=== PATIENT | female | born 1960 | race Asian ===

== ENCOUNTER 2022-12-19 20:32 | Emergency (ER) | payer BC ==
[~2022-12-19] VITALS: Ht 160 cm; Wt 50.3 kg
--- NOTE | 2022-12-19 21:00 | NUR ---
Patient discharged to home in stable condition. Written and verbal after care instructions given. Patient verbalizes understanding of instructions. Stressed follow up or return to ER for worsening s/s. Patient walked out with steady gait.
[2022-12-19] MEDS ORDERED: ALBUTEROL SULFATE 2.5 MG/3 ML NEBU ONE (21:11)
[2022-12-19] MEDS ORDERED: IPRATROPIUM BROMIDE 0.5 MG/2.5 ML NEBU ONE (21:11)
[2022-12-19] MEDS ORDERED: predniSONE 50 MG TABLET ONE (21:13)
[2022-12-19] MEDS ORDERED: predniSONE 10 MG TABLET ONE (21:13)
[2022-12-19] MEDS ORDERED: ALBUTEROL SULFATE 2.5 MG/3 ML NEBU NEB ONE (21:15)
[2022-12-19] MEDS ORDERED: IPRATROPIUM BROMIDE 0.5 MG/2.5 ML NEBU NEB ONE (21:15)
[2022-12-19] MEDS ORDERED: predniSONE 10 MG TABLET PO ONE (21:15)
[2022-12-19] MEDS ORDERED: ALBU8.5H8 IH ×2 (21:29→21:32)
[2022-12-19] MEDS ORDERED: PRED20TA PO ×2 (21:29→21:32)
[2022-12-19 23:27] VITALS: BP 145/85
== END 2022-12-19 21:05 | disposition home or self-care (01) ==
LOC: ER 20:32
DX: J98.01 Acute bronchospasm (principal); J40 Bronchitis, not specified as acute or chronic; Z79.899 Other long term (current) drug therapy
CPT/HCPCS: A4663; J3590; J7512